=== PATIENT | male | born 1970 | race Two or more races ===

== ENCOUNTER 2017-02-24 09:32 | Emergency (ER) | payer MEDICAID ==
[~2017-02-24] VITALS: Ht 177.8 cm; Wt 81.6 kg
[~2017-02-24 09:32] MED LIST: METH750T3 PO
[2017-02-24 11:15] VITALS: BP 153/101
== END 2017-02-24 12:23 | disposition home or self-care (01) ==
LOC: ER 09:32
DX: S49.92XD Unspecified injury of left shoulder and upper arm, subsequent encounter (principal); X58.XXXD Exposure to other specified factors, subsequent encounter; Z76.0 Encounter for issue of repeat prescription

== ENCOUNTER 2017-05-11 08:39 | Emergency (ER) | payer MEDICAID ==
[~2017-05-11] VITALS: Ht 152.4 cm; Wt 79.4 kg
[2017-05-11 09:01] VITALS: BP 121/79
== END 2017-05-11 09:23 | disposition home or self-care (01) ==
LOC: ER 08:39
DX: M25.512 Pain in left shoulder (principal); Z90.49 Acquired absence of other specified parts of digestive tract; Z79.899 Other long term (current) drug therapy; Z76.0 Encounter for issue of repeat prescription

== ENCOUNTER 2017-09-14 06:27 | Emergency (ER) | payer MEDICAID ==
[~2017-09-14] VITALS: Ht 180.3 cm; Wt 83.9 kg
[2017-09-14 06:42] VITALS: BP 124/70
== END 2017-09-14 08:32 | disposition home or self-care (01) ==
LOC: ER 06:29
DX: M25.512 Pain in left shoulder (principal); Z90.89 Acquired absence of other organs; Z91.81 History of falling
CPT/HCPCS: 73030

== ENCOUNTER 2018-01-08 13:58 | Emergency (ER) | payer MEDICAID, OTHER ==
[~2018-01-08] VITALS: Ht 180.3 cm; Wt 79.4 kg
[2018-01-08 14:09] VITALS: BP 128/62
== END 2018-01-08 15:10 | disposition home or self-care (01) ==
LOC: ER 13:58
DX: S20.302D Unspecified superficial injuries of left front wall of thorax, subsequent encounter (principal); Z76.0 Encounter for issue of repeat prescription; X58.XXXD Exposure to other specified factors, subsequent encounter

== ENCOUNTER 2021-02-06 23:04 | Emergency (ER) | payer MEDICAID ==
[~2021-02-06] VITALS: Ht 172.7 cm; Wt 74.8 kg
[~2021-02-06 23:04] MED LIST changes: +METH750T22 PO; -METH750T3 PO
[2021-02-06 23:36] LABS: Basophils # (auto) 0 10 ^3/uL (0-0.2); Basophils % (auto) 0.7 % (0.0-2.0); Eosinophils # (auto) 0.3 10 ^3/uL (0-0.8); Eosinophils % (auto) 4.4 % (0.0-7.0); Hematocrit 30.6 % (41.0-53.0); Hemoglobin 10.4 g/dL (13.5-17.5); Lymphocytes # (auto) 1.9 10 ^3/uL (0.4-5.4); Mean Corpuscular Hemoglobin 29.5 pg (28.0-32.0); Mean Corpuscular Hgb Conc. 34.2 g/dL (32.0-36.0); Mean Corpuscular Volume 86.2 fL (80.0-100.0); Monocytes # (auto) 0.7 10 ^3/uL (0-1.3); Monocytes % (auto) 10.8 % (0.0-12.0); Neutrophils # (auto) 3.4 10 ^3/uL (1.6-8.6); Neutrophils % (auto) 54.1 % (37.0-80.0); Nucleated Red Blood Cells % 0.1 %; Red Blood Cells 3.55 10^6/uL (4.5-5.90); Red Cell Distribution Width 14.1 % (11.8-14.3); White Blood Cell 6.2 10^3/uL (4.4-10.8)
[2021-02-06 23:56] LABS: Albumin 2.4 g/dL (3.4-5.0); BUN/Creatinine Ratio 11.9; Calcium 6.6 mg/dL (8.5-10.1)
[2021-02-07] LABS: Bilirubin, Total 0.5 mg/dL (0.2-1.0); Total Protein 5.4 g/dL (6.4-8.2)
[2021-02-07 00:18] LABS: Potassium 2.5 mmol/L (3.5-5.1)
[2021-02-07] MEDS ORDERED: POTASSIUM CHL 20MEQ/100ML 100 ML IV STA (00:31)
[2021-02-07] MEDS ORDERED: POTASSIUM EFFERVESENT TAB 25 MEQ PO ONE (00:45)
[2021-02-07] MEDS ORDERED: ONDANSETRON HCL 4 MG/2 ML VIAL IV ONE (01:45)
[2021-02-07] MEDS ORDERED: KETOROLAC TROMETH 30 MG/ML 1ML VIAL IV ONE (02:15)
[2021-02-07] MEDS ORDERED: ACETAMINOPHEN 325 MG TAB PO ONE (02:15)
[2021-02-07 02:43] LABS: Alcohol, Urine < 3.0 mg/dL (0-10); Amphetamine Screen, Urine POSITIVE (NEGATIVE); Barbiturate Scree,Urine NEGATIVE (NEGATIVE); Benzodiazephine Screen, Urine NEGATIVE (NEGATIVE); Cannabinoid Screen, Urine POSITIVE (NEGATIVE); Cocaine Screen, Urine NEGATIVE (NEGATIVE); Opiate Scree,Urine NEGATIVE (NEGATIVE); Phencyclidine Screen, Urine NEGATIVE (NEGATIVE)
[2021-02-07 02:52] LABS: Urine Bacteria NONE SEEN /hpf (None Seen); Urine Blood Negative /uL (Negative); Urine Specific Gravity 1.009 (1.001-1.035); Urine WBC 2 /hpf (0 - 3)
[2021-02-07 02:54] VITALS: BP 134/64
[2021-02-07] MEDS ORDERED: SODIUM CHLORIDE 0.9% 1,000 ML IV ONE (03:15)
[2021-02-07 03:50] LABS: BUN/Creatinine Ratio 11.4; Calcium 7.8 mg/dL (8.5-10.1); Potassium 4.4 mmol/L (3.5-5.1)
== END 2021-02-07 05:42 | disposition home or self-care (01) ==
LOC: EDBD 23:04 → ER 23:04
DX: R56.9 Unspecified convulsions (principal); F19.10 Other psychoactive substance abuse, uncomplicated; G89.29 Other chronic pain; M54.2 Cervicalgia; Z90.89 Acquired absence of other organs
CPT/HCPCS: 36415; 70450; 80048; 80053; 80307; 81001; 82550; 83605; 85025; 96361; 96374; 96375; 99284; J1885; J2405; J3480; J7030

== ENCOUNTER 2021-05-25 01:41 | Emergency (ER) | payer MEDICAID ==
[~2021-05-25] VITALS: Ht 177.8 cm; Wt 81.6 kg
[2021-05-25] MEDS ORDERED: TETANUS-DIPTH-ACEL PERTUSSIS 0.5ML SYR Tdap IM ONE (02:15)
[2021-05-25] MEDS ORDERED: SODIUM CHLORIDE 0.9% 1,000 ML IV ONE (02:15)
[2021-05-25 03:09] LABS: Eosinophils # (auto) 0 10 ^3/uL (0-0.8)
[2021-05-25 03:10] LABS: Basophils # (auto) 0.1 10 ^3/uL (0-0.2); Basophils % (auto) 0.2 % (0.0-2.0); Hematocrit 40.7 % (41.0-53.0); Lymphocytes # (auto) 1.2 10 ^3/uL (0.4-5.4); Lymphocytes % (auto) 5.4 % (10.0-50.0); Mean Corpuscular Hemoglobin 27.9 pg (28.0-32.0); Mean Corpuscular Hgb Conc. 31.9 g/dL (32.0-36.0); Mean Corpuscular Volume 87.5 fL (80.0-100.0); Monocytes # (auto) 0.7 10 ^3/uL (0-1.3); Monocytes % (auto) 3.3 % (0.0-12.0); Neutrophils # (auto) 20.6 10 ^3/uL (1.6-8.6); Neutrophils % (auto) 91.1 % (37.0-80.0); Red Blood Cells 4.65 10^6/uL (4.5-5.90); Red Cell Distribution Width 14.5 % (11.8-14.3); White Blood Cell 22.6 10^3/uL (4.4-10.8)
[2021-05-25 03:30] LABS: INR 1.27 (0.9-1.15)
[2021-05-25 03:41] LABS: Albumin 3.5 g/dL (3.4-5.0); BUN/Creatinine Ratio 24.1; Calcium 8.8 mg/dL (8.5-10.1); Magnesium 2.5 mg/dL (1.6-2.6); Potassium 4.2 mmol/L (3.5-5.1)
[2021-05-25 03:44] LABS: Bilirubin, Total 0.6 mg/dL (0.2-1.0); Total Protein 7.4 g/dL (6.4-8.2)
[2021-05-25] MEDS ORDERED: MORPHINE SULFATE INJECTION 2 MG/ML SYRG IV ONE (04:30)
[2021-05-25 04:51] VITALS: BP 137/84
== END 2021-05-26 05:17 | disposition home or self-care (01) ==
LOC: EDBD 01:41 → ER 01:41
DX: S06.5X0A Traumatic subdural hemorrhage without loss of consciousness, initial encounter (principal); F10.129 Alcohol abuse with intoxication, unspecified; Y08.89XA Assault by other specified means, initial encounter; Y93.89 Activity, other specified; Y92.89 Other specified places as the place of occurrence of the external cause; Y99.8 Other external cause status; Y90.1 Blood alcohol level of 20-39 mg/100 ml
CPT/HCPCS: 36415; 70450; 70486; 71045; 72125; 80053; 80320; 83735; 85025; 85610; 90471; 90715; 96361; 96374; 99285; J2270; J7030

== ENCOUNTER → 2021-05-26 | Emergency (ER) | payer MEDICAID ==
[~2021-05-26] VITALS: Ht 177.8 cm; Wt 77.1 kg
[~2021-05-26] MED LIST changes: +MORPHINE SULFATE 4 MG/ML SYR/VIAL IV ONE; +ONDANSETRON HCL 4 MG/2 ML VIAL IV ONE
[2021-05-26 12:10] LABS: Hematocrit 36.7 % (41.0-53.0); Hemoglobin 11.9 g/dL (13.5-17.5); Mean Corpuscular Hemoglobin 28.6 pg (28.0-32.0); Mean Corpuscular Hgb Conc. 32.4 g/dL (32.0-36.0); Mean Corpuscular Volume 88.3 fL (80.0-100.0); Red Blood Cells 4.15 10^6/uL (4.5-5.90); White Blood Cell 8.5 10^3/uL (4.4-10.8)
[2021-05-26 12:11] LABS: Albumin 2.9 g/dL (3.4-5.0); BUN/Creatinine Ratio 18.9; Calcium 7.9 mg/dL (8.5-10.1); Potassium 4.3 mmol/L (3.5-5.1)
[2021-05-26 12:33] LABS: INR 1.44 (0.9-1.15); Partial Thromboplastin Time 28.2 sec (23.6-33.0)
[2021-05-26 12:38] LABS: Basophils % (manual) 0 (0.0-2.0); Blast Cells 0; Eosinophils % (manual) 0 (0-7); Myelocytes % 0; Promyelocytes % 0; Reactive Lymphocytes 0
[2021-05-26 13:06] LABS: Band Neutrophils % (manual) 1; Lymphocytes % (manual) 8 (10.0-50.0); Metamyelocytes % 1; Monocytes % (manual) 4 (0-12)
[2021-05-26 13:20] VITALS: BP 111/63
== END | disposition home or self-care (01) ==
LOC: ER 09:09
DX: S06.5X9A Traumatic subdural hemorrhage with loss of consciousness of unspecified duration, initial encounter (principal); Z90.49 Acquired absence of other specified parts of digestive tract; Z79.899 Other long term (current) drug therapy; Y04.8XXA Assault by other bodily force, initial encounter; Y93.89 Activity, other specified; Y92.89 Other specified places as the place of occurrence of the external cause; Y99.8 Other external cause status
CPT/HCPCS: 36415; 70450; 70486; 72125; 80053; 85007; 85027; 85610; 85730; 96374; 96375; 99285; J2270; J2405

== ENCOUNTER 2021-06-07 10:36 | Emergency (ER) | payer MEDICAID ==
[~2021-06-07] VITALS: Ht 182.9 cm; Wt 83.9 kg
[~2021-06-07 10:36] MED LIST changes: -MORPHINE SULFATE 4 MG/ML SYR/VIAL IV ONE; -ONDANSETRON HCL 4 MG/2 ML VIAL IV ONE
[2021-06-07] MEDS ORDERED: SODIUM CHLORIDE 0.9% 1,000 ML IVB ONE (10:45)
[2021-06-07 10:47] VITALS: BP 113/74
[2021-06-07] MEDS ORDERED: NALOXONE HCL 0.4 MG/ML VIAL ONE (11:38)
[2021-06-07] MEDS ORDERED: NALOXONE HCL 1MG/ML 2ML SYRINGE IV ONE (11:45)
[2021-06-07 11:54] LABS: Basophils # (auto) 0 10 ^3/uL (0-0.2); Basophils % (auto) 0.8 % (0.0-2.0); Eosinophils # (auto) 0.3 10 ^3/uL (0-0.8); Eosinophils % (auto) 4.6 % (0.0-7.0); Hematocrit 36.6 % (41.0-53.0); Lymphocytes # (auto) 1.8 10 ^3/uL (0.4-5.4); Lymphocytes % (auto) 30.9 % (10.0-50.0); Mean Corpuscular Hemoglobin 29.1 pg (28.0-32.0); Mean Corpuscular Hgb Conc. 32.7 g/dL (32.0-36.0); Mean Corpuscular Volume 88.8 fL (80.0-100.0); Monocytes # (auto) 0.6 10 ^3/uL (0-1.3); Monocytes % (auto) 10.4 % (0.0-12.0); Neutrophils # (auto) 3.2 10 ^3/uL (1.6-8.6); Neutrophils % (auto) 53.3 % (37.0-80.0); Nucleated Red Blood Cells % 0.1 %; Red Blood Cells 4.12 10^6/uL (4.5-5.90); White Blood Cell 5.9 10^3/uL (4.4-10.8)
[2021-06-07 12:02] LABS: Albumin 3.5 g/dL (3.4-5.0); Anion Gap 3 (5-15); Blood Alcohol < 3.0 mg/dL (0-5); Blood Urea Nitrogen 15 mg/dL (7-18); Calcium 8.8 mg/dL (8.5-10.1); Carbon Dioxide 28 mmol/L (21-32); Chloride 111 mmol/L (98-107); Glucose 89 mg/dL (74-106); Potassium 4.5 mmol/L (3.5-5.1); Sodium 142 mmol/L (136-145)
[2021-06-07 12:06] LABS: Alanine Aminotransferase 31 U/L (16-61); Alkaline Phosphatase 97 U/L (45-117); Aspartate Aminotransferase 20 U/L (15-37); BUN/Creatinine Ratio 19.7; Bilirubin, Total 0.2 mg/dL (0.2-1.0); GFR African American 139 mL/min; GFR Non-African American 115 mL/min; Total Protein 7.1 g/dL (6.4-8.2)
[2021-06-07 16:52] LABS: Alcohol, Urine < 3.0 mg/dL (0-10); Amphetamine Screen, Urine NEGATIVE (NEGATIVE); Barbiturate Scree,Urine NEGATIVE (NEGATIVE); Benzodiazephine Screen, Urine POSITIVE (NEGATIVE); Cannabinoid Screen, Urine NEGATIVE (NEGATIVE); Cocaine Screen, Urine NEGATIVE (NEGATIVE); Opiate Scree,Urine NEGATIVE (NEGATIVE); Phencyclidine Screen, Urine NEGATIVE (NEGATIVE)
== END 2021-06-07 17:01 | disposition left against medical advice (07) ==
LOC: ER 10:36 → EDBD 10:36 → ER 17:01
DX: F12.10 Cannabis abuse, uncomplicated (principal); F15.10 Other stimulant abuse, uncomplicated; F14.10 Cocaine abuse, uncomplicated; Z90.49 Acquired absence of other specified parts of digestive tract; Z79.899 Other long term (current) drug therapy
CPT/HCPCS: 36415; 70450; 80053; 80307; 80320; 85025; 93005; 96361; 96374; 99285; J2310; J7030

== ENCOUNTER 2021-10-30 13:11 | Emergency (ER) | payer MEDICAID ==
[~2021-10-30] VITALS: Ht 180.3 cm; Wt 83.9 kg
[2021-10-30 13:12] VITALS: BP 142/94
[2021-10-30] MEDS ORDERED: CEPH-509 PO (14:12)
[2021-10-30] MEDS ORDERED: IBUP800T27 PO (14:12)
== END 2021-10-30 14:19 | disposition home or self-care (01) ==
LOC: ER 13:11
DX: S50.862A Insect bite (nonvenomous) of left forearm, initial encounter (principal); F12.10 Cannabis abuse, uncomplicated; F15.10 Other stimulant abuse, uncomplicated; F14.10 Cocaine abuse, uncomplicated; X58.XXXA Exposure to other specified factors, initial encounter; Y93.89 Activity, other specified; Y92.89 Other specified places as the place of occurrence of the external cause; Y99.8 Other external cause status

== ENCOUNTER 2021-11-14 11:30 | Emergency (ER) | payer MEDICAID ==
[~2021-11-14] VITALS: Ht 180.3 cm; Wt 81.6 kg
[~2021-11-14 11:30] MED LIST changes: +CEPH-509 PO; +IBUP800T27 PO
[2021-11-14] MEDS ORDERED: TRAM-297 PO (11:57)
[2021-11-14 11:59] VITALS: BP 147/81
== END 2021-11-14 12:15 | disposition home or self-care (01) ==
LOC: ER 11:30
DX: G89.29 Other chronic pain (principal); M54.2 Cervicalgia; M54.50 Low back pain, unspecified; Z76.0 Encounter for issue of repeat prescription; Z90.49 Acquired absence of other specified parts of digestive tract; Z79.1 Long term (current) use of non-steroidal anti-inflammatories (NSAID); Z79.899 Other long term (current) drug therapy

== ENCOUNTER 2021-11-18 14:00 | Emergency (ER) | payer MEDICAID ==
[~2021-11-18] VITALS: Ht 180.3 cm; Wt 81.6 kg
[~2021-11-18 14:00] MED LIST changes: +TRAM-297 PO
[2021-11-18] MEDS ORDERED: TRAM-297 PO (15:28)
[2021-11-18 16:50] VITALS: BP 119/80
== END 2021-11-18 16:52 | disposition home or self-care (01) ==
LOC: ER 14:00
DX: G89.29 Other chronic pain (principal); M54.50 Low back pain, unspecified; M79.18 Myalgia, other site; F12.10 Cannabis abuse, uncomplicated; F15.10 Other stimulant abuse, uncomplicated; F14.10 Cocaine abuse, uncomplicated; Z76.0 Encounter for issue of repeat prescription

== ENCOUNTER 2021-11-24 09:44 | Emergency (ER) | payer MEDICAID ==
[~2021-11-24] VITALS: Ht 177.8 cm; Wt 83.9 kg
[2021-11-24 11:52] VITALS: BP 147/89
[2021-11-24] MEDS ORDERED: TRAM50TA2 PO (11:54)
[2021-11-24] MEDS ORDERED: traMADol HCL 50 MG TAB PO ONE (12:00)
== END 2021-11-24 12:06 | disposition home or self-care (01) ==
LOC: ER 09:44
DX: G89.29 Other chronic pain (principal); M54.50 Low back pain, unspecified; M54.2 Cervicalgia; M25.512 Pain in left shoulder; Z76.0 Encounter for issue of repeat prescription; Z90.49 Acquired absence of other specified parts of digestive tract; Z79.1 Long term (current) use of non-steroidal anti-inflammatories (NSAID); Z79.899 Other long term (current) drug therapy

== ENCOUNTER 2021-11-26 10:04 | Emergency (ER) | payer MEDICAID ==
[~2021-11-26] VITALS: Ht 180.3 cm; Wt 81.6 kg
[~2021-11-26 10:04] MED LIST changes: +TRAM50TA2 PO
[2021-11-26 10:30] VITALS: BP 132/87
[2021-11-26] MEDS ORDERED: TRAM50TA2 PO (10:43)
== END 2021-11-26 10:54 | disposition home or self-care (01) ==
LOC: ER 10:04
DX: G89.29 Other chronic pain (principal); M54.50 Low back pain, unspecified; Z76.0 Encounter for issue of repeat prescription; Z90.49 Acquired absence of other specified parts of digestive tract; Z87.891 Personal history of nicotine dependence; Z79.1 Long term (current) use of non-steroidal anti-inflammatories (NSAID); Z79.899 Other long term (current) drug therapy

== ENCOUNTER 2021-12-17 09:50 | Emergency (ER) | payer MEDICAID ==
[~2021-12-17] VITALS: Ht 177.8 cm; Wt 83.9 kg
[2021-12-17 10:11] VITALS: BP 114/75
[2021-12-17] MEDS ORDERED: traMADol HCL 50 MG TAB PO ONE (10:45)
[2021-12-17] MEDS ORDERED: TRAM50TA2 PO (10:49)
== END 2021-12-17 11:02 | disposition home or self-care (01) ==
LOC: ER 09:50
DX: M54.50 Low back pain, unspecified (principal); M25.512 Pain in left shoulder; M54.2 Cervicalgia; Z87.891 Personal history of nicotine dependence

== ENCOUNTER 2021-12-23 10:47 | Emergency (ER) | payer MEDICAID ==
[2021-12-23] MEDS ORDERED: TRAM-297 PO (11:03)
[2021-12-23 11:27] VITALS: BP 133/78
== END 2021-12-23 11:33 | disposition home or self-care (01) ==
LOC: ER 10:47
DX: G89.29 Other chronic pain (principal); M25.512 Pain in left shoulder; M54.50 Low back pain, unspecified; Z90.49 Acquired absence of other specified parts of digestive tract; Z87.891 Personal history of nicotine dependence; Z79.1 Long term (current) use of non-steroidal anti-inflammatories (NSAID); Z79.899 Other long term (current) drug therapy

== ENCOUNTER 2022-01-23 10:50 | Emergency (ER) | payer MEDICAID ==
[~2022-01-23] VITALS: Ht 180.3 cm; Wt 81.8 kg
[2022-01-23 11:14] VITALS: BP 129/73
[2022-01-23] MEDS ORDERED: TRAM-297 PO (11:19)
== END 2022-01-23 11:31 | disposition home or self-care (01) ==
LOC: ER 10:50
DX: M54.2 Cervicalgia (principal); G89.29 Other chronic pain; Z76.0 Encounter for issue of repeat prescription

== ENCOUNTER 2022-03-15 19:54 | Emergency (ER) | payer MEDICAID ==
[~2022-03-15] VITALS: Ht 180.3 cm; Wt 85.8 kg
[2022-03-15 23:00] VITALS: BP 139/70
[2022-03-16] MEDS ORDERED: traMADol HCL 50 MG TAB PO ONE
[2022-03-16] MEDS ORDERED: TRAM50TA2 PO (00:03)
== END 2022-03-16 00:28 | disposition home or self-care (01) ==
LOC: ER 19:55
DX: M25.512 Pain in left shoulder (principal); G89.4 Chronic pain syndrome; Z76.0 Encounter for issue of repeat prescription; Z87.891 Personal history of nicotine dependence

== ENCOUNTER 2022-04-05 00:22 | Emergency (ER) | payer MEDICAID ==
[~2022-04-05] VITALS: Ht 172.7 cm; Wt 85.0 kg
[2022-04-05 00:22] VITALS: BP 134/75
== END 2022-04-05 03:33 | disposition left against medical advice (07) ==
LOC: EDBD 00:22 → ER 00:26
DX: G89.29 Other chronic pain (principal); M54.9 Dorsalgia, unspecified; Z53.21 Procedure and treatment not carried out due to patient leaving prior to being seen by health care provider

== ENCOUNTER 2022-04-13 19:29 | Emergency (ER) | payer MEDICAID ==
[~2022-04-13] VITALS: Ht 177.8 cm; Wt 84.0 kg
[2022-04-13 23:44] VITALS: BP 131/67
[2022-04-14] MEDS ORDERED: traMADol HCL 50 MG TAB PO ONE (00:15)
[2022-04-16] MEDS ORDERED: TRAM-711 PO (10:10)
== END 2022-04-14 01:51 | disposition home or self-care (01) ==
LOC: ER 19:31
DX: G89.29 Other chronic pain (principal); M54.50 Low back pain, unspecified; M54.2 Cervicalgia; M25.512 Pain in left shoulder; Z90.49 Acquired absence of other specified parts of digestive tract; Z87.891 Personal history of nicotine dependence; Z79.1 Long term (current) use of non-steroidal anti-inflammatories (NSAID); Z79.899 Other long term (current) drug therapy

== ENCOUNTER → 2022-04-16 | Emergency (ER) | payer MEDICAID ==
[~2022-04-16] VITALS: Ht 180.3 cm; Wt 92.0 kg
[~2022-04-16] MED LIST changes: +TRAM-711 PO; +traMADol HCL 50 MG TAB PO ONE
[2022-04-16 10:05] VITALS: BP 143/65
== END | disposition home or self-care (01) ==
LOC: ER 08:12
DX: G89.4 Chronic pain syndrome (principal); M54.9 Dorsalgia, unspecified; Z87.891 Personal history of nicotine dependence

== ENCOUNTER 2022-05-02 09:07 | Emergency (ER) | payer MEDICAID ==
[~2022-05-02] VITALS: Ht 177.8 cm; Wt 81.8 kg
[~2022-05-02 09:07] MED LIST changes: -TRAM-711 PO; -traMADol HCL 50 MG TAB PO ONE
[2022-05-02 09:10] VITALS: BP 127/84
== END 2022-05-02 09:58 ==
LOC: ER 09:07
DX: S00.81XA Abrasion of other part of head, initial encounter (principal); F12.10 Cannabis abuse, uncomplicated; Z09 Encounter for follow-up examination after completed treatment for conditions other than malignant neoplasm; Z87.891 Personal history of nicotine dependence; Z90.89 Acquired absence of other organs; Y08.89XA Assault by other specified means, initial encounter; Y93.89 Activity, other specified; Y92.89 Other specified places as the place of occurrence of the external cause; Y99.8 Other external cause status

== ENCOUNTER 2023-09-01 12:09 | Emergency (ER) | payer MEDICAID ==
[~2023-09-01] VITALS: Ht 177.8 cm; Wt 94.3 kg
[~2023-09-01 12:09] MED LIST changes: +IBUP-1456 PO; -IBUP800T27 PO; +METH-1182 PO; -METH750T22 PO
[2023-09-01] MEDS ORDERED: NAP500T PO (14:58)
[2023-09-01 14:59] VITALS: BP 162/68; PULSE 81; RESP 16; TEMP 98.1; O2SAT 97
== END 2023-09-01 15:09 | disposition home or self-care (01) ==
LOC: ER 12:09
DX: R51.9 Headache, unspecified (principal); Y04.8XXA Assault by other bodily force, initial encounter; Y93.01 Activity, walking, marching and hiking; Y92.89 Other specified places as the place of occurrence of the external cause; Y99.8 Other external cause status
CPT/HCPCS: 70450